=== PATIENT | male | born 1975 | race Caucasian/White ===

== ENCOUNTER 2018-03-08 11:07 | Outpatient (CLI) | payer OTHER ==
[2015-12-30 08:16] VITALS: BP 118/68
[2018-03-08] MEDS ORDERED: ALBUTEROL SULFATE 2.5 MG/3 ML AMPUL.NEB NEB ONE (11:51)
== END 2018-03-08 11:10 ==
LOC: RT 11:07
PROVIDERS: ATTEND Family Medicine
DX: J43.1 Panlobular emphysema (principal)
CPT/HCPCS: 94060

== ENCOUNTER 2018-08-12 15:42 | Outpatient (CLI) | payer OTHER, BC ==
[2015-12-30 08:16] VITALS: BP 118/68
[2018-08-12 16:51] LABS: BASOPHILS % 0.7 % (0.0-1.5); EOSINOPHILS % 3.7 % (0.0-6.8); MONOCYTES % 6.6 % (0.0-11.0); NEUTROPHILS # 4.7 # k/uL (1.4-7.7)
[2018-08-12 17:02] LABS: eGFR (Non-African) > 60
== END 2018-08-12 15:45 ==
LOC: LAB 15:42
PROVIDERS: ATTEND Internal Medicine Infectious Disease
DX: B20 Human immunodeficiency virus [HIV] disease (principal); E78.5 Hyperlipidemia, unspecified; I25.10 Atherosclerotic heart disease of native coronary artery without angina pectoris; I25.5 Ischemic cardiomyopathy
CPT/HCPCS: 36415; 80053; 80061; 85025; 86359; 86780; 86999; 87491; 87536; 87591

== ENCOUNTER 2018-12-09 15:48 | Outpatient (CLI) | payer BC, OTHER ==
[2015-12-30 08:16] VITALS: BP 118/68
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
== END 2018-12-09 15:50 ==
LOC: RAD 15:48
PROVIDERS: ATTEND Family Medicine
DX: M25.512 Pain in left shoulder (principal); M25.511 Pain in right shoulder
CPT/HCPCS: 72040

== ENCOUNTER 2019-02-24 13:30 | Outpatient (CLI) | payer BC, OTHER ==
[2015-12-30 08:16] VITALS: BP 118/68
--- NOTE | 2019-02-24 16:40 | Diagnostic Imaging Report ---
PATIENT MR#: [id number] PATIENT PATIENT NAME: TURNER ADKNIS DATE OF : 1975 REFERRING PHYSICIAN: Mindy Gavin EXAM DATE: 02/24/2019 ACCESSION NUMBER: [id number] EXAM DESCRIPTION: RT HIP 2VIEW COMPLETE Indication: Right hip pain. Technique: 2 views of the right hip were obtained. Comparison: None available Findings: There is no fracture or dislocation of the pelvis or right hip. There is focal sclerosis a t the right femoral head with central lucency. The right femoral head articular surface appears to be maintained. The j oint spaces of the bilateral hips appear normal. The pubic symphysis and sacroiliac joints are normal in appearance. T here are no radiopaque foreign bodies or other obvious soft tissue abnormalities. Impression: 1. No fracture or dislocation of the right hip. 2. Focus of sclerosis and central lucency seen at the right femoral head raises the concern for avas cular necrosis. If clinically indicated, further evaluation with right hip MRI may be helpful. Read by: Dr. Ishmael Fatima Transcribed by: Ishmael Fatima Transcribed Date: 02/24/2019 4:38:46 PM Electronically signed by: Dr. Ishmael Fatima Date signed: 02/24/2019 4:39:38 PM
--- NOTE | 2019-02-24 17:07 | Diagnostic Imaging Report ---
PATIENT MR#: [id number] PATIENT PATIENT NAME: TURNER ADKINS DATE OF : 1975 REFERRING PHYSICIAN: Mindy Gavin EXAM DATE: 02/24/2019 ACCESSION NUMBER: [id number] EXAM DESCRIPTION: SHOULDER 2 VIEWS OR MORE Indication: Left shoulder pain, recent injury . Aggravating an old injury. Technique: 3 views of the left shoulder were obtained. Comparison: December 09, 2018. Findings: There is no acute fracture, dislocation, or worrisome osseous lesions of the left shoulder. There is a shallow chronic impaction injury seen of the superior humeral head articular surface near the greater tuberosity. This pattern of injury suggests a prior dislocation with an impaction fracture of the humeral head. This is unchanged compared to December 09, 2018 and had a chronic appearance at that time. The glenohumeral joint and acr omioclavicular joint appear to be within normal limits. The partially visualized left lung is clear. Impression: 1. No acute fracture or dislocation of the left shoulder. 2. Chronic impaction injury of the superior humeral head near the greater tuberosity suggests a prio r dislocation/impaction injury of the left shoulder. Read by: Dr. Ishmael Fatima Transcribed by: Ishmael Fatima Transcribed Date: 02/24/2019 5:05:54 PM Electronically signed by: Dr. Ishmael Fatima Date signed: 02/24/2019 5:06:57 PM
== END 2019-02-24 13:40 ==
LOC: RAD 13:30
PROVIDERS: ATTEND Family Medicine
DX: S49.82XA Other specified injuries of left shoulder and upper arm, initial encounter (principal); M89.9 Disorder of bone, unspecified; X58.XXXA Exposure to other specified factors, initial encounter
CPT/HCPCS: 73030; 73502

== ENCOUNTER 2019-03-18 18:34 | Emergency (ER) | payer BC, OTHER ==
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
[2019-03-18 18:54] LABS: BASOPHILS % 0.7 % (0.0-1.5)
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
[2019-03-18 19:18] LABS: eGFR (Non-African) > 60
[2019-03-18] MEDS ORDERED: 0.9 % SODIUM CHLORIDE 1,000 ML IV ONE (19:22)
[2019-03-18] MEDS ORDERED: NALOXONE HCL 0.4 MG/ML AMP IVP ONE (20:08)
[2019-03-18] MEDS ORDERED: 0.9 % SODIUM CHLORIDE 1,000 ML IV SCH (20:15)
[2019-03-19 03:37] VITALS: BP 101/67
== END 2019-03-19 02:00 | disposition home or self-care (01) ==
LOC: ED 18:34
DX: F13.90 Sedative, hypnotic, or anxiolytic use, unspecified, uncomplicated (principal); R07.89 Other chest pain
CPT/HCPCS: 71045; 80053; 83880; 84484; 85025; 93005; 96361; 96374; 99284; J2310; J7030